=== PATIENT | female | born 1940 | race Caucasian/White ===

== ENCOUNTER → 2020-05-01 | Day surgery (SDC) | payer MEDICARE ==
[~2020-05-01] MED LIST: ASPIRIN CHEWABL81 MG PO; CLOPIDOGREL75 MG PO; DOK100 MG PO; FEOSOL325 MG PO; LOSARTAN POTASS25 MG PO; METOPROLOL TART25 MG PO; NITROGLYCERIN0.4 MG SL; OCUVITE ADULT1 EAC1 PO; SIMVASTATIN20 MG PO
== END | disposition home or self-care (01) ==
LOC: OR 06:52
PROVIDERS: Internal Medicine Gastroenterology
PROC: 0W3P8ZZ Control Bleeding in Gastrointestinal Tract, Via Natural or Artificial Opening Endoscopic (ICD-10-PCS; principal; 2020-05-01 12:45)
PROC: 0DJ08ZZ Inspection of Upper Intestinal Tract, Via Natural or Artificial Opening Endoscopic (ICD-10-PCS; 2020-05-01 12:45)
DX: K57.31 Diverticulosis of large intestine without perforation or abscess with bleeding (principal); K64.0 First degree hemorrhoids; D62 Acute posthemorrhagic anemia; I10 Essential (primary) hypertension; E78.5 Hyperlipidemia, unspecified; I25.10 Atherosclerotic heart disease of native coronary artery without angina pectoris; Z95.5 Presence of coronary angioplasty implant and graft; E66.01 Morbid (severe) obesity due to excess calories; Z68.41 Body mass index [BMI] 40.0-44.9, adult; Z79.02 Long term (current) use of antithrombotics/antiplatelets; Z79.82 Long term (current) use of aspirin; Z79.899 Other long term (current) drug therapy
CPT/HCPCS: J2001; J2704; J7040

== ENCOUNTER → 2020-10-02 | Outpatient (CLI) | payer MEDICARE | LOC: HEART 5 08:47 | DX: I25.10 Atherosclerotic heart disease of native coronary artery without angina pectoris (principal); R06.02 Shortness of breath; I25.2 Old myocardial infarction; I08.3 Combined rheumatic disorders of mitral, aortic and tricuspid valves; R93.1 Abnormal findings on diagnostic imaging of heart and coronary circulation; R94.39 Abnormal result of other cardiovascular function study | CPT/HCPCS: 78452; 93306; A9502; J2785 ==

== ENCOUNTER → 2021-12-12 | Day surgery (SDC) | payer MEDICARE ==
[~2021-12-12] MED LIST changes: +MIRALAX17 GM PO
== END | disposition home or self-care (01) ==
LOC: OR 08:12
PROVIDERS: Internal Medicine Gastroenterology
PROC: 0DJD8ZZ Inspection of Lower Intestinal Tract, Via Natural or Artificial Opening Endoscopic (ICD-10-PCS; principal; 2021-12-12 09:35)
PROC: 0DJ08ZZ Inspection of Upper Intestinal Tract, Via Natural or Artificial Opening Endoscopic (ICD-10-PCS; 2021-12-12 09:35)
DX: D62 Acute posthemorrhagic anemia (principal); K57.30 Diverticulosis of large intestine without perforation or abscess without bleeding; K64.1 Second degree hemorrhoids; G25.81 Restless legs syndrome; I10 Essential (primary) hypertension; E78.00 Pure hypercholesterolemia, unspecified; I25.10 Atherosclerotic heart disease of native coronary artery without angina pectoris; E66.01 Morbid (severe) obesity due to excess calories; I25.2 Old myocardial infarction; Z68.37 Body mass index [BMI] 37.0-37.9, adult; Z79.02 Long term (current) use of antithrombotics/antiplatelets; Z79.82 Long term (current) use of aspirin; Z79.899 Other long term (current) drug therapy; Z95.5 Presence of coronary angioplasty implant and graft
CPT/HCPCS: J7040